=== PATIENT | female | born 1950 | race Two or more races ===

== ENCOUNTER 2016-07-25 15:10 | Emergency (ER) | payer MEDICARE, MEDICAID ==
[~2016-07-25] VITALS: Ht 152.4 cm; Wt 64.9 kg
[~2016-07-25 15:10] MED LIST: ANASTROZOLE1 GM; ASPIR-LOW81 MG ORAL; ATORVASTATIN CA40 MG PO; HYDROCODON-ACE1 EACH PO; LIPITOR40 MG ORAL; MECLIZINE HCL25 MG ORAL; OMEPRAZOLE40 M1 PO; RANITIDINE HCL300 MG PO; TYLENOL EXTRA500 MG ORAL; VITAMIN C500 M1 ORAL; VITAMIN D1000 UNI1 ORAL; ZOFRAN4 MG ORAL
[2016-07-25 15:32] VITALS: BP 130/81
[2016-07-25] MEDS ORDERED: ROBAXIN-750750 MG PO (15:47)
[2016-07-25 15:51] VITALS: BP 130/81
--- NOTE | 2016-07-25 15:56 | Emergency Room Report ---
History of Present Illness General Chief Complaint: Upper Extremity Injury Source: Patient Present Illness HPI 65YO F walk-in with 2 days acute on chronic bilateral right>left shoulder/neck pain radiating to hands with decreased rn delivery strength worse on the right. Denies numbness to extremities, headache, neck stiffness, fever/chills. Takes medication "for breast cancer." Has experienced this previously. Went to Urgent Care clinic who referred her to ER for "TIA." Was also given Rx for Ibuprofen but patient states she cant take it because of "severe gastritis." Allergies: Coded Allergies: SULFA (SULFONAMIDE ANTIBIOTICS) (Verified Allergy, Mild, 05/02/12) Patient History Past Medical History: other - Breast cancer Past Surgical History: none Pertinent Family History: none Social History: Denies: alcohol use, drug use, smoking Now: No Immunizations: UTD Reviewed Nursing Documentation: PMH: Agreed, PSxH: Agreed Nursing Documentation-PMH Hx Cancer: Yes - lt breast 2013 Hx Gastrointestinal Problems: Yes - Gastritis Hx Neurological Problems: No Review of Systems All Other Systems: negative except mentioned in HPI Physical Exam Vital Signs Date Time Temp Pulse Resp B/P Pulse Ox O2 Delivery O2 Flow Rate FiO2 07/25/16 15:19 98.2 76 16 130/81 99 Room Air Sp02 EP Interpretation: reviewed, normal General Appearance: normal inspection, well appearing, no apparent distress, alert, GCS 15, non-toxic Head: normocephalic, atraumatic Eyes: bilateral eye EOMI, bilateral eye PERRL ENT: normal ENT inspection, hearing grossly normal, normal voice Neck: normal inspection, full range of motion, supple, no bony tend Respiratory: normal inspection, lungs clear, normal breath sounds, no respiratory distress, no retraction, no wheezing Cardiovascular #1: regular rate, rhythm, no edema Gastrointestinal: normal inspection, normal bowel sounds, non tender, soft, no guarding, no hernia Genitourinary: no CVA tenderness Musculoskeletal: other - ++ttp right posterior SCM, right shoulder, right upper arm, and right hand. Decreased right hand rn delivery d/t pain. No wrist drop. Sensation intact. Neurologic: normal inspection, alert, oriented x3, responsive, head rigger III-XII nml as tested, motor strength/tone normal, cerebellar normal, normal gait Psychiatric: normal inspection, judgement/insight normal, mood/affect normal Skin: normal inspection, normal color, no rash Lymphatic: normal inspection Medical Decision Making Diagnostic Impression: Primary Impression: Impingement syndrome of right shoulder ER Course 65YOF with 2 days R>L pain to upper extremities. Decreased rn delivery d/t pain NIHSS 0. Unlikely CVA given no focal neuro deficits, pain at multiple points along right neck, shoulder and arm Has had chronically I offered CT head to r/o CVA but patient refused given "Tona had radiation for breast cancer" previously In shared decision making, I agree that CVA risk is low and that nerve impingment is definitely more likely at this point Rx Robaxin Advised to avoid NSAIDs with history of gastritis PMD followup if worse for outpatient MRI of neck recommended Last Vital Signs Date Time Temp Pulse Resp B/P Pulse Ox O2 Delivery O2 Flow Rate FiO2 07/25/16 15:32 98.2 16 130/81 99 Room Air 07/25/16 15:19 76 Status: improved Disposition: HOME, SELF-CARE Condition: Improved Scripts Methocarbamol* (ROBAXIN-750*) 750 Mg Tablet 750 MG PO TID for right shoulder/arm pain, #30 TAB 0 Refills Prov: BUZZ SHAHID M.D. 07/25/16 Patient Instructions: Cervical Radiculopathy, [id number] Additional Instructions: - Do NOT take ibuprofen for pain if you have gastritis - Take Robaxin up to 3x a day for right shoulder/arm pain - If symptoms get worse, ask your primary care doctor for an outpatienr MRI of your neck BUZZ SHAHID M.D. July 25, 2016 15:56
[2016-07-25] MEDS ORDERED: Methocarbamol 750mg tab ORAL ONE (16:00)
== END 2016-07-25 15:51 | disposition home or self-care (01) ==
LOC: EMR 15:30
DX: M75.41 Impingement syndrome of right shoulder (principal); Z85.3 Personal history of malignant neoplasm of breast; Z87.19 Personal history of other diseases of the digestive system; Z88.2 Allergy status to sulfonamides
CPT/HCPCS: 99283

== ENCOUNTER 2017-01-11 11:05 | Emergency (ER) | payer MEDICARE, MEDICAID ==
[~2017-01-11] VITALS: Ht 152.4 cm; Wt 69.4 kg
[~2017-01-11 11:05] MED LIST changes: +ROBAXIN-750750 MG PO
[2017-01-11 11:19] VITALS: BP 152/77
[2017-01-11] MEDS ORDERED: TYLENOL325 MG ORAL (11:40)
--- NOTE | 2017-01-11 12:55 | Emergency Room Report ---
History of Present Illness General Chief Complaint: Chest Pain Source: Patient Present Illness HPI 66YOF with chest pain, left sided of chest, sharp, worse with movement, reproducible, 5/10. No assoc cough, SOB, fever/chills History of HTN Also c/o acute onset left cheek pain/numbness. No associated extremity numbness , pain No history of CVA Allergies: Coded Allergies: SULFA (SULFONAMIDE ANTIBIOTICS) (Verified Allergy, Mild, 05/02/12) Patient History Past Medical History: HTN Past Surgical History: none Pertinent Family History: none Social History: Denies: smoking, alcohol use, drug use Last Menstrual Period: na Now: No Immunizations: UTD Reviewed Nursing Documentation: PMH: Agreed, PSxH: Agreed Nursing Documentation-PMH Past Medical History: No History, Except For Hx Cancer: Yes - lt breast 2013 Hx Gastrointestinal Problems: Yes - Gastritis Hx Neurological Problems: No Review of Systems All Other Systems: negative except mentioned in HPI Physical Exam Vital Signs Date Time Temp Pulse Resp B/P (MAP) Pulse Ox O2 Delivery O2 Flow Rate FiO2 01/11/17 11:06 98.2 81 18 167/103 98 Room Air Sp02 EP Interpretation: reviewed, normal General Appearance: normal inspection, well appearing, no apparent distress, alert, GCS 15, non-toxic Head: normocephalic, atraumatic Eyes: bilateral eye PERRL, bilateral eye EOMI ENT: normal ENT inspection, hearing grossly normal, normal voice Neck: normal inspection, full range of motion, supple, no bony tend Respiratory: normal inspection, lungs clear, normal breath sounds, no rhonchi, no respiratory distress, no retraction, no accessory muscle use, no wheezing, other - left sided chest with very reproducible chest pain to palpation, chest symmetrical Cardiovascular #1: regular rate, rhythm, no edema Gastrointestinal: normal inspection, normal bowel sounds, non tender, soft, no guarding, no hernia Genitourinary: no CVA tenderness Musculoskeletal: normal inspection, back normal, normal range of motion, Ramone' s Sign negative Neurologic: normal inspection, alert, oriented x3, responsive, diamond wheel edger III-XII nml as tested, speech normal Psychiatric: normal inspection, judgement/insight normal, mood/affect normal Skin: normal inspection, normal color, no rash Medical Decision Making Diagnostic Impression: Primary Impression: Chest pain Qualified Codes: R07.9 - Chest pain, unspecified ER Course Chest pain VSS. Afebrile ECG is non-ischemic. No arrythmia No CAD risk factors Low suspicion for ACS, PE to name a couple given well appearance, the below MSK description and normal vitals Likely MSK given reproducible, worse with movement No associated cough/SOB to raise concern for PNA Left cheek pain No focal neuro deficits Unlikely CVA Analgesia provided Reassured patient DC home EKG Diagnostic Results Rate: normal Rhythm: NSR ST Segments: no acute changes ASA given to the pt in ED: No Rhythm Strip Diag. Results EP Interpretation: yes Rate: 67 Rhythm: NSR, no PVC's, no ectopy Last Vital Signs Date Time Temp Pulse Resp B/P (MAP) Pulse Ox O2 Delivery O2 Flow Rate FiO2 01/11/17 11:42 69 17 109/64 97 Room Air 01/11/17 11:19 98.8 Status: improved Disposition: HOME, SELF-CARE Condition: Improved Scripts Acetaminophen (Tylenol) 325 Mg Tablet 650 MG ORAL Q8H Y for Prn Pain/Headache/Temp > 101 for 7 Days, #30 TAB 0 Refills Prov: BUZZ SHAHID M.D. 01/11/17 Referrals: NOT CHOSEN IPA/,REFERRING (PCP) Patient Instructions: Nonspecific Chest Pain Additional Instructions: - Take tylenol as needed for chest pain, facial pain - Follow up with your primary care doctor in 2-3 days BUZZ SHAHID M.D. Jan 11, 2017 12:55
--- NOTE | 2017-01-13 16:59 | Cardiology Report ---
APPROVED REPORT EKG Measurement Heart [id number] Normal sinus rhythm Possible Anterior infarct, age undetermined Abnormal ECG
== END 2017-01-11 11:50 | disposition home or self-care (01) ==
LOC: EMR 11:47
DX: R07.89 Other chest pain (principal); I10 Essential (primary) hypertension; Z85.3 Personal history of malignant neoplasm of breast; Z87.19 Personal history of other diseases of the digestive system; Z88.2 Allergy status to sulfonamides
CPT/HCPCS: 93005; 99283